=== PATIENT | female | born 1975 | race Caucasian/White ===

== ENCOUNTER 2024-02-24 10:28 | Outpatient (CLI) | payer OTHER, SELFPAY ==
--- OUTSIDE RECORDS SUMMARY | 2024-02-24 10:52 | XMS_ITS | Clinical Summary ---
Author Organization [facility] Address [place], [place] [address] Care Team Providers Care Senior Hydrogeologist Name Role Phone Sarah Gray MD Primary Care Provider [phone] Allergies Active Allergy Reactions Criticality Noted Date Comments Erythromycin Hives 12/06/2005 Ethyl Alcohol Rash 04/12/2005 Medications Medication Sig Dispensed Refills Start Date End Date Status buPROPion (WELLBUTRIN XL) 150 mg Extended-Release tablet Take 150 mg by mouth once daily. 3 12/18/2018 Active cholecalciferol (Vitamin D) 1,000 unit capsule Take 1 Capsule (1,000 units) by mouth once daily. 0 08/25/2020 Active Cfubb-8-ZVK-EPA-Fish Oil 1,000 mg (120 mg-180 mg) cap Take 1 Capsule (1,000 mg) by mouth. 0 08/25/2020 Active FLUoxetine (PROZAC) 20 mg capsule Take 20 mg by mouth once daily. 09/15/2021 Active phentermine (ADIPEX-P) 37.5 mg tablet TAKE 1 1/2 (ONE AND A HALF) TABLET(S) BY MOUTH DAILY 06/08/2021 Active progesterone micronized (PROMETRIUM) 100 mg capsule Take 100 mg by mouth at bedtime. 08/05/2021 Active traZODone (DESYREL) 50 mg tablet Take 25 mg by mouth at bedtime. 09/15/2021 Active Mesalamine (ASACOL) 800 mg TbEC Delayed-Release tablet Take 2 Tablets (1,600 mg) by mouth once daily. 0 09/22/2021 Active cholecalciferol (Decara) 50,000 unit capsule Active benzonatate (TESSALON) 100 mg capsuleIndications:A cute cough Take 1-2 Capsules (100-200 mg) by mouth 3 times daily if needed for Cough. 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 Myofascial pain 07/02/2017 Endometriosis 03/19/2017 Moderate episode of recurrent major depressive d isorder 09/20/2016 Crohn's disease 07/04/2009 Overview (07/04/2009): 06/2008 Colonoscopy 2008 Insomnia, unspecified 12/06/2005 Irritable bowel syndrome 04/18/2005 Resolved Problems Problem Noted Date Diagnosed Date Resolved Date Crohn's disease of large int estine without complication 09/20/2016 09/20/2021 delivery 12/01/2007 09/20/2021 care and examinat ion of lactating mother 12/01/2007 09/20/2021 Supervision of normal first 07/24/2007 09/20/2021 Immunizations Name Administration Dates Next Due Influenza A (H1N1), Inactivated 03/14/2009 Influenza Virus, Unspecified 12/31/2015 Influenza, IIV3 (Age >=3 years) 01/21/2008 Influenza, IIV4 02/21/2015,01/12/2014 Influenza, IIV4 (=>6mos) MDV 12/23/2018,12/29/19 16 Influenza,CCIIV4 PRESERV FREE 01/26/2020 Tdap 04/01/2011,12/02/2007 Family History Medical History Relation Name Comments No Known Problems Brother 1 Good Health Brother 2 endocarditis Cancer-prostate Father Hypertension Father Other Father Anuresym Abd Diabetes Maternal Grandfather Heart Disease Maternal Grandfather CHF Cancer Mother endometrial Cancer-breast Mother Hypertension Mother Cancer-colon Paternal Aunt Stroke Paternal Grandmother Cancer-ovarian No Family History Relation Name Status Comments Brother 1 Alive Brother 2 Father Alive Maternal Grandfather Maternal Grandmother Alive Mother Alive Paternal Aunt Alive Paternal Grandfather Paternal Grandmother Son Alive x1 Social History Tobacco Use Types Packs/Day Years Used Date Smoking Tobacco: Never Smokeless Tobacco: Never Comments:No passive exposure Alcohol Use Standard Drinks/Week Comments Yes 0 (1 standard drink = 0.6 oz pur e alcohol) 1-2 times/ month PHQ-2 Answer Date Recorded PHQ-2 TOTAL SCORE 0 09/22/2021 Social Connections Answer Date Recorded Frequency of Communication with Friends and Fami ly 0 04/03/2023 Financial Resource Strain Answer Date R ecorded Difficulty of Paying Living Expenses 3 04/03/2023 Difficulty of Paying Living Expenses Not on file 04/03/2023 Food Insecurity Answer Date Recorded Worried About Running Out of Food in the Last Ye ar 1 04/03/2023 Transportation Needs Answer Date Record ed Lack of Transportation (Medical) 1 04/03/2023 Housing Stability Answer Date Recorded Unable to Pay for Housing in the Last Year 1 04/03/2023 Sex and Gender Information Value Date Recorded Sex Assigned at Not on file Gender Identity Not on file Sexual Orientation Not on file Obstetrics History Para Term AB IAB SAB Ectopic Multiple Livin g Live Births 4 3 3 0 0 0 0 0 1 1 Date Outcome GA Total Labor Labor/2nd/3rd Weight Sex Type Anes PTL Noelle A1 A5 Name Clin Comments:System Genera vito. Please review and update details. Term CS-Un spec Term CS-Un spec 008 Term 39w 0d 18h 00m/ 3.57 kg (7 lb 14 oz) M C-Sec tion Huber Kim Comments LMP 02/25/07 Last Filed Vital Signs Vital Sign Reading Time Taken Comments Blood Pressure 113/72 04/03/2023 10:31 AM FRETTED INSTRUMENT REPAIRER Pulse 72 04/03/2023 10:31 AM FRETTED INSTRUMENT REPAIRER Temperature 36.7 C (98 F) 04/03/2023 10:31 AM FRETTED INSTRUMENT REPAIRER Respiratory Rate 16 04/03/2023 10:31 AM FRETTED INSTRUMENT REPAIRER Oxygen Saturation 98% 04/03/2023 10:31 AM FRETTED INSTRUMENT REPAIRER Inhaled Oxygen Concentration - - Weight 66 kg (145 lb 9.6 oz) 10/24/2021 11:45 AM CDT Height 161.9 cm (5' 3.75) 10/24/2021 11:45 AM C DT Body Mass Index 25.19 10/24/2021 11:45 AM CDT Plan of Treatment Health Maintenance Due Date Last Done Comments Hepatitis C screening for age 18-79 06/08/1993 Lipids for age 45-75 06/08/2020 07/04/2009 Tetanus booster 04/01/2021 04/01/2011, 12/02/2007 Depression screening for age 12+ 09/22/2022 09/22/2021, 08/25/2020, 08/25/2020 BMI (ht and wt on same day) for age 18+ 10/24/2022 10/24/2021, 09/22/2021 COVID-19 vaccine series ( season) 2023 01/24/2022, 07/07/2020, 2020 Influenza for age 9-49 12/01/2023 , 12/23/2018, 12/31/2015, Additional history exists Mammogram for age 45-75 05/06/2024 05/06/19, 04/11/2022, 03/30/2021, Additional history exists Colonoscopy through age 75 11/13/2032 11/13/2022, HIV for age 15-65 Completed 04/28/2007 Tdap Completed 04/01/2011, 12/02/2007 Pneumococcal series for age 6-64 Aged Out No longer eligible based on patient's age to complete this topic Procedures Procedure Name Priority Date/Time Associated Diagnosis Comments XR MAMMO RADHA BILAT SCREEN Routine 05/06/2023 1:01 PM FRETTED INSTRUMENT REPAIRER Breast cancer screening by mammogram SCAN-COLONOSCOPY 11/13/2022 10:0 0 AM CDT LIPID PANEL W REFLEX MEASURED LDL Routine 07/04/2009 12:20 PM CDT Screening for lipoid disorders ANTI HIV 1/2 Routine 04/28/2007 11:35 AM FRETTED INSTRUMENT REPAIRER Supervision Of Normal First from Last 3 Months or Most Recently Relevant to Health Maintenance Results * XR MAMMO RADHA BILAT SCREEN (05/06/2023 1:01 PM FRETTED INSTRUMENT REPAIRER) Anatomical Region Laterality Modality BREASTS, Breast Left, Breast Right Bilateral Mammography Impressions 05/07/2023 7:45 AM FRETTED INSTRUMENT REPAIRER There is no radiographic evidence for malignancy. Recommend annual mammograms. MAMMOGRAM ASSESSMENT: ACR 1 Negative PATIENTS: You will also receive a letter with your examination results in an easy to read format. If you have questions about your results, please contact your referring provider. Narrative 05/07/2023 7:45 AM FRETTED INSTRUMENT REPAIRER For Patients: As a result of the Century Cures Act, medical imaging exams and procedure reports are released immediately into your electronic medical record. You may view this report before your referring provider. If you have questions, please contact your health care provider. XR MAMMO RADHA BILAT SCREEN [[id number]] CLINICAL HISTORY: This is an asymptomatic 47 y.o. patient. INDICATION FOR EXAM: Mammogram Screening. TECHNIQUE: CC & MLO views were obtained. This study was evaluated with the assistance of Computer-Aided Detection. Breast Tomosynthesis was used in interpretation. COMPARISON FILM: Yes 04/11/22 03/30/21 FINDINGS: The breasts are heterogeneously dense, which may obscure small masses. There are no dominant masses, suspicious micro calcifications or areas of architectural distortion. Keonramandeep Pulido BRINE TANK SEPARATOR OPERATOR MAMMO * SCAN-COLONOSCOPY (11/13/2022 10:00 AM CDT) Narrative Procedure Note Janie Luu MD - 11/13/2022 9:13 AM CDT [facility] [address] [place] [address], [address], [place] [address] Patient Name: Keon Nieto Gender: Female Exam Date: 11/13/2022 Visit Number: [id number] Age: 47 Years Date of : 1975 Attending MD: Janie Luu MD Medical Record#: [id number] Procedure: Colonoscopy Indications: Crohn's disease Surveillance exam- no active symptoms Referring MD: Referral Self Primary MD: No Primary Medications: Admitting Medications: 0.9% Normal Saline at TKO Intra Procedure Medications: Patient received monitored anesthesia care. Complications: No immediate complications Procedure: An examination of the heart and lungs was performed and found to be withinacceptable limits. . The patient was therefore deemed a reasonablecandidate for endoscopy and sedation. The risks and benefits of the procedure were explained to the patient.After obtaining informed consent, the patient received monitoredanesthesia care and I passed the scope without difficulty via the rectum to the ileum. The appendiceal orificeand ic valve were identified. The scope was retroflexed during theexamination The quality of the prep was fair (Raj/Gat Double Split). This was a complete examination throughout the entire colon. Findings: Normal finding. Location - ileum. Anal canal: normal Opaque liquid and mucous throughout the colon. Small lesions may have beenmissed. The entire colon was normal. Comments: Dysplasia biopsies labeled as ascending, transverse, descendingand sigmoid Impression: Crohn's disease of both small and large intestine without complications Preliminary Plan: Repeat colonoscopy in 3 years for Crohn's Disease Recommendation Comments: Will need miralax 17 grams daily for 2 weeksprior to next exam, and double prep. Pathology Results: A: COLON, ASCENDING, BIOPSY: 1. Normal colonic mucosa 2. Negative for microscopic, active, and chronic colitis 3. Negative for dysplasia B: COLON, TRANSVERSE, BIOPSY: 1. Normal colonic mucosa 2. Negative for microscopic, active, and chronic colitis 3. Negative for dysplasia C: COLON, DESCENDING, BIOPSY: 1. Normal colonic mucosa 2. Negative for microscopic, active, and chronic colitis 3. Negative for dysplasia D: COLON, SIGMOID, BIOPSY: 1. Normal colonic mucosa 2. Negative for microscopic, active, and chronic colitis 3. Negative for dysplasia MICROSCOPIC A: Performed B: Performed C: Performed D: Performed Electronically signed by: Jackeline Carter MD Interpreted at [facility] Digestive [facility], [address] [place], [place] [id number] Orders Instruction(s)/Education: Instruction/Education Timeframe Assessment Colon Cancer Prevention K50.80 Final Plan: Repeat colonoscopy in 3 years for Crohn's disease. We will attempt to contact you at appropriate intervals via U.S. mail. Wemay not be able to find you or contact you at that time, therefore youshould know that the responsibility for following our recommendation restswith you. If you don't hear from us at the time your procedure is due,please contact our office to schedule an appointment. If your contactinformation should change, please contact our office so that we can updateyour record. _Electronically signed by: Janie Luu MD 11/13/2022 cc: No Primary Janie Luu MD OTHER * LIPID PANEL W REFLEX MEASURED LDL (07/04/2009 12:20 PM CDT) CHOLESTEROL,TOTAL 186 110 - 199 MG/DL [facility] TRIGLYCERIDES 67 40 - 149 MG/DL [facility] HDL CHOLESTEROL 75 >40 MG/DL [facility] LDL CHOLESTEROL 98 0 - 129 MG/DL [facility] CHOL/HDL RATIO 2.5 <4.[address] [facility] PATIENT STATUS FASTING [facility] Blood specimen (specimen) BLOOD SPECIMEN / Unknown 07/04/2009 12:20 PM CDT 07/04/2009 2:19 PM CDT Chaya Soto MD CHEMISTRY [place] [id number] * ANTI HIV 1/2 (04/28/2007 11:35 AM FRETTED INSTRUMENT REPAIRER) ANTI HIV 1/2 Non-reacti ve [facility] Blood specimen (specimen) BLOOD SPECIMEN / Unknown 04/28/2007 11:35 AM FRETTED INSTRUMENT REPAIRER 04/28/2007 11:34 AM FRETTED INSTRUMENT REPAIRER Mely Berkowitz DO SEND OUTS [facility] INTERNAL ZIP [id number] [address] from Last 3 Months or Most Recently Relevant to Health Maintenance Advance Directives * Full Code (Latest Code Status on File) Date Activated Date Inactivated Comments 03/19/2017 4:42 PM 03/20/2017 12:48 AM Question Answer Comments Code Status Discussion: Not Discussed * Full Code Date Activated Date Inactivated Comments 09/19/2011 1:05 PM 09/22/2011 12:56 AM * Full Code Date Activated Date Inactivated Comments 09/19/2011 8:18 AM 09/19/2011 1:05 PM * Full Code Date Activated Date Inactivated Comments 04/28/2010 12:15 PM 04/28/2010 6:48 PM * Full Code Date Activated Date Inactivated Comments 11/30/2007 6:14 PM 12/04/2007 2:55 PM Care Teams Senior Hydrogeologist Relationship Specialty [place] [address] [place] [address] PCP - General Family Practice 12/30/18
--- OUTSIDE RECORDS SUMMARY | 2024-02-24 10:53 | XMS_ITS | Clinical Summary ---
Author Organization [place] Address [address] [place] [address] [place] [address] Care Team Providers Care Lathe Machine Operator Name Role Phone Thanh Maldonado MD Unavailable Allergies Active Allergy Reactions Criticality Noted Date Comments Erythromycin 04/08/2012 Medications VITAMIN D, CHOLECALCIFEROL , PO Take by mouth daily. Active [place]-3 Fatty Acids (OMEGA-3 FISH OIL PO) Take 1 g by mouth daily. Active Mesalamine (ASACOL PO) Take 800 mg by mouth 3 times daily Active buPROPion (WELLBUTRIN XL) 150 MG 24 hr tablet Take 150 mg by mouth every morning Active FLUoxetine 40 MG PO capsule Take 40 mg by mouth 12/12/2018 Active traZODone (DESYREL) 50 MG tabletIndicatio ns:Other insomnia Take 0.5 tablets (25 mg) by mouth At Bedtime 30 tablet 1 08/22/2021 Active Active Problems Problem Noted Date Diagnosed Date S/P hysterectomy 08/22/2021 Overview (08/22/2021): Pap no longer indicated Crohn's disease of large intestine without compl ication 09/20/2016 Moderate episode of recurrent major depressive d isorder 09/20/2016 Resolved Problems Problem Noted Date Diagnosed Date Resolved Date Temporomandibular joint internal derangement 8 09/16/2017 Myofascial pain dysfunction syndrome 07/09/2017 09/16/2017 Enthesopathy of knee 10/18/2005 006 Overview (12/30/2014): Problem list name updated by automated process. Provider to review Immunizations Name Administration Dates Next Due Influenza Vaccine >6 months,paty, PF 12/31/2015, 02/21/2015 TDAP Vaccine (Boostrix) 04/01/2011 Family History Medical History Relation Comments Cerebrovascular Disease Father Prostate Cancer Father Breast Cancer Mother Diabetes Mother Type II Endometrial Cancer Mother Relation Status Comments Father Mother Social History Tobacco Use Types Packs/Day Years Used Date Smoking Tobacco: Never Smokeless Tobacco: Never Tobacco Cessation:Counseling Given: Yes Alcohol Use Standard Drinks/Week Comments Yes 0 (1 standard drink = 0.6 oz pur e alcohol) rare PHQ-2 Answer Date Recorded PHQ-2 Score 0 08/22/2021 Adolescent Education Answer Date Record ed Getting School Help Needed Not on file 01/13 Comments No Sex and Gender Information Value Date Recorded Sex Assigned at Not on file Legal Sex Female 4:31 AM AIR GUN OPERATOR Gender Identity Not on file Sexual Orientation Not on file Occupation Industry Job Start Date Job End Date Not on file Not on file Not on file Not on file Last Filed Vital Signs Vital Sign Reading Time Taken Comments Blood Pressure 116/68 08/22/2021 1:14 PM CDT Pulse 83 08/22/2021 1:14 PM CDT Temperature 36.8 C (98.3 F) 08/22/2021 1:14 PM CDT Respiratory Rate 12 08/22/2021 1:14 PM CDT Oxygen Saturation 100% 08/22/2021 1:14 PM CDT Inhaled Oxygen Concentration - - Weight 66.7 kg (147 lb) 08/22/2021 1:14 PM CDT Height 161.3 cm (5' 3.5) 08/22/2021 1:14 PM CDT Body Mass Index 25.63 08/22/2021 1:14 PM CDT Plan of Treatment Health Maintenance Due Date Last Done Comments ADVANCE CARE PLANNING 1975 ANNUAL REVIEW OF HM ORDERS 1975 [address] COLONOGRAPHY 1975 DEPRESSION ACTION PLAN 1975 FIT 1975 FLEX SIG 1975 sDNA (Cologuard) 1975 Pneumococcal Vaccine: Pediatrics (0 to 5 Years) and At-Risk Patients (6 to 64 Years) (1 of 2 - PCV) 06/08/1981 HIV SCREENING 06/08/1990 HEPATITIS C SCREENING 06/08/1993 HEPATITIS B IMMUNIZATION (1 of 3 - 19+ 3-dose series) 06/08/1994 GLUCOSE 09/21/2019 09/20/2016, 05/28/2009 COVID-19 Vaccine (3 - Moderna risk series) 08/04/2020 07/07/2020, 2020 DTAP/TDAP/TD IMMUNIZATION (3 - Td or Tdap) 04/01/2021 04/01/2011, 12/02/2007 LIPID 10/30/2021 10/30/2016 PHQ-9 02/22/2022 08/22/2021, 08/22/2021 YEARLY PREVENTIVE VISIT 09/22/2022 09/22/2021, 09/20 MAMMO SCREENING 03/30/2023 03/30/2021, 01/30, 01/26/2019 INFLUENZA VACCINE (#1) 2023 , 12/23/2018, 12/31/2015, Additional history exists COLONOSCOPY 10/20/2029 10/21/2019, 04/0 05/2016, 01/25/2014, Additional history exists COLORECTAL CANCER SCREENING 10/20/2029 RSV VACCINE (1 - 1-dose 75+ series) 06/08/2050 PAP Discontinued 07/31/2015 HPV IMMUNIZATION Aged Out No longer e ligible based on patient's age to complete this topic MENINGITIS IMMUNIZATION Aged Out No l onger eligible based on patient's age to complete this topic RSV MONOCLONAL ANTIBODY Aged Out No l onger eligible based on patient's age to complete this topic Procedures Procedure Name Priority Date/Time Associated Diagnosis Comments LIPID REFLEX TO DIRECT LDL PANEL Routine 10/30/2016 8:01 AM CDT CARDIOVASCULAR SCREENING; LDL GOAL LESS THAN 130 COMPREHENSIVE METABOLIC PANEL Routine 09/20/2016 9:07 AM CDT Crohn's disease of large intestine without complication (H) COLONOSCOPY - HIM SCAN 07/02/2016 12:00 AM CDT PAP SMEAR - HIM PATIENT REPORTED Routine 07/31/2015 from Last 3 Months or Most Recently Relevant to Health Maintenance Results * Lipid panel reflex to direct LDL (10/30/2016 8:01 AM CDT) Cholesterol 153 <200 mg/dL [facility] Triglycerides 44 <150 mg/dL [facility] Comment:Fasting specimen HDL Cholesterol 71 >49 mg/dL [facility] LDL Cholesterol Calculated 73 <100 mg/dL [facility] Comment:Desirable: <100 mg/d l Non HDL Cholesterol 82 <130 mg/dL [facility] Blood specimen (specimen) 10/30/2016 8:01 AM CDT 10/30/2016 8:02 AM CDT us Selam Fontaine T RAIL TURNER DIRECTOR MOBILE LAB - BLOOD ORDERABLE S Final Result [facility] [address] [place] [address] * Comprehensive metabolic panel (09/20/2016 9:07 AM CDT) Sodium 139 133 - 144 mmol/L [facility] Potassium 3.8 3.4 - 5.3 mmol/L [facility] Chloride 106 94 - 109 mmol/L [facility] Carbon Dioxide 24 20 - 32 mmol/L [facility] Anion Gap 9 3 - 14 mmol/L [facility] Glucose 88 70 - 99 mg/dL [facility] Comment:Non Fasting Urea Nitrogen 22 7 - 30 mg/dL [facility] Creatinine 0.84 0.52 - 1.04 mg/dL [facility] GFR Estimate 74 >60 mL/min/1.7 m2 [facility] Comment:Non GFR Calc GFR Estimate If Black 90 >60 mL/min/1.7 m2 [facility] Comment: GFR Calc Calcium 9.0 8.5 - 10.1 mg/dL [facility] Bilirubin Total 0.5 0.2 - 1.3 mg/dL [facility] Albumin 3.9 3.4 - 5.0 g/dL [facility] Protein Total 7.4 6.8 - 8.8 g/dL [facility] Alkaline Phosphatase 58 40 - 150 U/L [facility] ALT 19 0 - 50 U/L [facility] AST 14 0 - 45 U/L [facility] Blood specimen (specimen) 09/20/2016 9:07 AM CDT 09/20/2016 9:08 AM CDT us Rui Hughes MD LAB - BLOOD ORDERABLES Final Result Performing Organization Address [facility]/ZIP Co de Phone Number [facility] [address] [place] [address] * COLONOSCOPY - HIM SCAN (07/02/2016 12:00 AM CDT) 07/02/2016 us Provider Outside PROCEDURES Final Result * PAP Smear - HIM Patient Reported (07/31/2015) PAP Smear - HIM Patient Reported Negative EXTERNAL LAB 07/31/2015 Narrative EXTERNAL LAB - 07/31/2015 Please abstract the following data from this visit with this patient into the appropriate field in Epic: Pap smear done on this date: July 2015 (approximately), by this group: [facility], results were normal. us Patient Reported LABORATORY Final Result EXTERNAL LAB External Lab from Last 3 Months or Most Recently Relevant to Health Maintenance Care Teams Lathe Machine Operator Relationship Specialty [place] [id number] [place] [address] Assigned PCP 08/26/21
--- OUTSIDE RECORDS SUMMARY | 2024-02-24 10:53 | XMS_ITS | Encounter Summary ---
Author Organization [place] Address [address] [place] [address] [place] [address] Care Team Providers Care Workers Compensation Claims Analyst Name Role Phone Rui Hughes MD Primary Care Provider [phone] Rui Hughes MD Unavailable [phone] Matthias Yip DPM Unavailable [phone] Thanh Maldonado MD Unavailable Encounter Details Date Type Department Care Team (Late st Contact Info) Description 06/25/2019 MyC Medical Advice [facility] [address] [facility] [address] [place] [address] Matthias Yip DPM [address] [facility] [address] [place] [address] Dry skin (Primary Dx) Social History Tobacco Use Types Packs/Day Years Used Date Smoking Tobacco: Never Smokeless Tobacco: Never Alcohol Use Standard Drinks/Week Comments Yes 0 (1 standard drink = 0.6 oz pur e alcohol) rare Comments No Sex and Gender Information Value Date Recorded Sex Assigned at Not on file Legal Sex Female 4:31 AM DESIGN MAKER Gender Identity Not on file Sexual Orientation Not on file Occupation Industry Job Start Date Job End Date Not on file Not on file Not on file Not on file documented as of this encounter Miscellaneous Notes * Telephone Encounter - Matthias Yip DPM - 06/25/2019 12:54 PM CDT Rx for topical steroid cream sent to patient's [facility] pharmacy. Matthias Yip DPM FACFAS FACFAOM Podiatric Foot & Ankle Surgeon [facility] [phone] * Telephone Encounter - An Russo RN - 06/25/2019 12:02 PM CDT Please see mychart response and advise. Carmella Russo RN documented in this encounter Plan of Treatment Not on file documented as of this encounter Visit Diagnoses Diagnosis Dry skin- Primary Other symptoms involving skin and integumentary tissues documented in this encounter Care Teams Workers Compensation Claims Analyst Relationship Specialty Start Date End Date Rui Hughes MD PCP - General Family Practice 10/05/16 01/28/22 [place] [address] [facility] [place] [address] Assigned PCP 08/31/16 09/26/19 Matthias Yip DPM [address] [facility] [address] [place] [address] Assigned Musculoskeletal Provider 01/22/20 11/19/20 [place] [address] [place] [address] Assigned PCP 08/26/21 documented as of this encounter
--- OUTSIDE RECORDS SUMMARY | 2024-02-24 10:53 | XMS_ITS | Encounter Summary ---
Author Organization [facility] Address [address] [place] [address] [place] [address] Care Team Providers Care Cabin Equipment Supervisor Name Role Phone Rui Hughes MD Primary Care Provider [phone] Matthias Yip DPM Unavailable [phone] Thanh Maldonado MD Unavailable Reason for Visit * Reason Onset Date Comments MyChart Communication 04/06/2020 Encounter Details Date Type Department Care Team (Late st Contact Info) Description 04/06/2020 MyC Medical Advice [facility] [id number] [place] [id number] [place] [address] [place] [address] MyChart Communication Social History Tobacco Use Types Packs/Day Years Used Date Smoking Tobacco: Never Smokeless Tobacco: Never Alcohol Use Standard Drinks/Week Comments Yes 0 (1 standard drink = 0.6 oz pur e alcohol) rare Comments No Sex and Gender Information Value Date Recorded Sex Assigned at Not on file Legal Sex Female 4:31 AM VMWARE ARCHITECT Gender Identity Not on file Sexual Orientation Not on file Occupation Industry Job Start Date Job End Date Not on file Not on file Not on file Not on file COVID-19 Exposure Response Date Recorded In the last month, have you been in contact with someone who was confirmed or suspected to have Coronavirus / COVID-19? No / Unsure 03/14/2020 2:29 PM [employer]WARE ARCHITECT documented as of this encounter Plan of Treatment Not on file documented as of this encounter Visit Diagnoses Not on filedocumented in this encounter Care Teams Cabin Equipment Supervisor Relationship Specialty Start Date End Date Rui Hughes MD PCP - General Family Practice 10/05/16 01/28/22 Matthias Yip DPM [id number] [facility] [address] [place] [address] Assigned Musculoskeletal Provider 01/22/20 11/19/20 [place] [id number] [place] [address] Assigned PCP 08/26/21 documented as of this encounter
--- OUTSIDE RECORDS SUMMARY | 2024-02-24 10:53 | XMS_ITS | Referral Summary ---
Author Organization [place] Address [address] [place] [address] [place] [address] Care Team Providers Care Pump Servicer Supervisor Name Role Phone Thanh Maldonado MD Unavailable Allergies Active Allergy Reactions Criticality Noted Date Comments Erythromycin 04/08/2012 Medications VITAMIN D, CHOLECALCIFEROL , PO Take by mouth daily. 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 LDL Cholesterol Calculated 73 <100 mg/dL [facility] Comment:Desirable: <100 mg/d l Non HDL Cholesterol 82 <130 mg/dL [facility] Blood specimen (specimen) 10/30/2016 8:01 AM CDT 10/30/2016 8:02 AM CDT us Selam Fontaine [facility] TECHNOLOGIST LAB - BLOOD ORDERABLE S Final Result [facility] [address] [place] [address] * Comprehensive metabolic panel (09/20/2016 9:07 AM CDT) Sodium 139 133 - 144 mmol/L [facility] Potassium 3.8 3.4 - 5.3 mmol/L [facility] Chloride 106 94 - 109 mmol/L [facility] Carbon Dioxide 24 20 - 32 mmol/L [facility] Anion Gap 9 3 - 14 mmol/L [facility] Glucose 88 70 - 99 mg/dL [facility] Comment:Non Fasting Urea Nitrogen 22 7 - 30 mg/dL [facility] Creatinine 0.84 0.52 - 1.04 mg/dL [facility] GFR Estimate 74 >60 mL/min/1.7 m2 [facility] Comment:Non GFR Calc GFR Estimate If Black 90 >60 mL/min/1.7 m2 [facility] Comment: GFR Calc Calcium 9.0 8.5 - 10.1 mg/dL [facility] Bilirubin Total 0.5 0.2 - 1.3 mg/dL [facility] Albumin 3.9 3.4 - 5.0 g/dL [facility] Protein Total 7.4 6.8 - 8.8 g/dL [facility] Alkaline Phosphatase 58 40 - 150 U/L [facility] ALT 19 0 - 50 U/L [facility] AST 14 0 - 45 U/L [facility] Blood specimen (specimen) 09/20/2016 9:07 AM CDT 09/20/2016 9:08 AM CDT us Rui Hughes MD LAB - BLOOD ORDERABLES Final Result Performing Organization Address City/[facility]/ZIP Co de Phone Number [facility] [address] [place] [address] * COLONOSCOPY - HIM SCAN (07/02/2016 12:00 [...] date: July 2015 (approximately), by this group: [facility], results were normal. us Patient Reported LABORATORY Final Result EXTERNAL LAB External Lab from Last 3 Months or Most Recently Relevant to Health Maintenance Care Teams Pump Servicer Supervisor Relationship Specialty Start [place] [address] [place] [address] Assigned PCP 08/26/21
== END 2024-02-24 10:29 | disposition home or self-care (01) ==
PROVIDERS: Visit Provider Family Medicine
DX: Z00.00 Encounter for general adult medical examination without abnormal findings (principal); F41.9 Anxiety disorder, unspecified; Z11.59 Encounter for screening for other viral diseases; Z13.6 Encounter for screening for cardiovascular disorders
CPT/HCPCS: 80053; 80061; 86803

== ENCOUNTER 2025-03-30 15:32 | Outpatient (CLI) | payer BC, SELFPAY | END 2025-03-30 15:33 | disposition home or self-care (01) | PROVIDERS: PCP Family Medicine; Visit Provider Family Medicine | DX: Z00.00 Encounter for general adult medical examination without abnormal findings (principal); F41.9 Anxiety disorder, unspecified; K50.90 Crohn's disease, unspecified, without complications; G47.00 Insomnia, unspecified; Z13.6 Encounter for screening for cardiovascular disorders | CPT/HCPCS: 80053; 80061 ==